=== PATIENT | female | born 1980 | race American Indian/Alaskan Native ===

== ENCOUNTER 2021-04-08 12:59 | Outpatient (CLI) | payer OTHER ==
--- NOTE | 2021-04-08 14:27 | XRay Report ---
LEFT SHOULDER 3 VIEWS INDICATION / CLINICAL INFORMATION: PAIN IN LEFT SHOULDER M25.512. COMPARISON: None available. FINDINGS: BONES / JOINT(S): There is no evidence of acute fracture, subluxation or destructive lesion. No signi ficant arthritis. SOFT TISSUES: No significant abnormality. ADDITIONAL FINDINGS: The visualized left lung is clear. IMPRESSION: No acute abnormality. Signer Name: Navdeep Collins MD Signed: 04/08/2021 2:23 PM Workstation Name: [id number]
--- NOTE | 2021-04-08 14:28 | XRay Report ---
CHEST 2 VIEWS INDICATION / CLINICAL INFORMATION: CHEST PAIN, UNSPECIFIED R07.9. COMPARISON: None available. FINDINGS: SUPPORT DEVICES: None. HEART / MEDIASTINUM: The heart size and pulmonary vasculature are normal. The aorta is normal in [place]. LUNGS / PLEURA: No significant pulmonary or pleural abnormality. No pneumothorax. ADDITIONAL FINDINGS: No significant additional findings. IMPRESSION: No acute findings. Signer Name: Navdeep Collins MD Signed: 04/08/2021 2:24 PM Workstation Name: [id number]
== END 2021-04-08 13:00 | disposition home or self-care (01) ==
LOC: SPVIMAG 12:59
PROVIDERS: ATTEND Internal Medicine
DX: M25.512 Pain in left shoulder (principal); R07.9 Chest pain, unspecified
CPT/HCPCS: 71046